=== PATIENT | male | born 1990 | race Caucasian/White ===

== ENCOUNTER 2021-11-27 06:25 | Emergency (ER) | payer OTHER ==
[~2021-11-27 06:25] MED LIST: AMOXICILLIN500 MG PO; ANAPROX DS550 MG PO; CIPRO500 MG PO; KEFLEX500 MG PO; LOMOTIL 0.025 M1 TAB PO; MACROBID100 M1 PO; MOTRIN800 MG PO; PROZAC40 MG PO; ZANTAC 150150 MG PO; ZANTAC150 MG PO; Zofran4 MG PO
[2021-11-27] MEDS ORDERED: PREDNISONE50 MG PO (11:31)
[2021-11-27] MEDS ORDERED: CYCLOBENZAPRINE10 MG PO (11:31)
[2021-11-27] MEDS ORDERED: MIRALAX POWDER17 G1 PO (15:31)
== END 2021-11-27 11:43 | disposition home or self-care (01) ==
LOC: ED 06:25
DX: M54.42 Lumbago with sciatica, left side (principal); Z90.89 Acquired absence of other organs

== ENCOUNTER 2021-11-27 13:02 | Emergency (ER) | payer OTHER ==
[~2021-11-27] VITALS: Ht 157.4 cm; Wt 79.4 kg
[~2021-11-27 13:02] MED LIST changes: +CYCLOBENZAPRINE10 MG PO; +PREDNISONE50 MG PO
[2021-11-27] MEDS ORDERED: MIRALAX POWDER17 G1 PO (15:31)
== END 2021-11-27 16:13 | disposition home or self-care (01) ==
LOC: ED 13:02
DX: M54.32 Sciatica, left side (principal)

== ENCOUNTER 2022-02-08 12:07 | Emergency (ER) | payer OTHER ==
[~2022-02-08] VITALS: Ht 157.4 cm; Wt 79.4 kg
[~2022-02-08 12:07] MED LIST changes: +MIRALAX POWDER17 G1 PO
[2022-02-08 13:10] LABS: BASO % 0.4 % (0.0-1.0); EOS # 0.2 10*3/uL (0.0-0.4); EOS % 1.9 % (1.0-4.0); HEMATOCRIT 46.3 % (42.0-52.0); LYMPH # 2.2 10*3/uL (1.3-4.4); LYMPH % 21.8 % (27.0-41.0); MEAN CELL VOLUME 98.7 fl (80.0-94.0); MEAN CORPUSCULAR HGB 33.7 pg (27.0-31.0); MEAN CORPUSCULAR HGB CONC 34.1 g/dl (33.0-37.0); MEAN PLATELET VOLUME 9.3 fl (9.6-12.3); MONO # 0.6 10*3/uL (0.1-1.0); MONO % 5.7 % (3.0-9.0); NEUT # 7.1 10*3/uL (2.3-7.9); PLATELET COUNT AUTOMATED 299 10*3/uL (130-400); RED BLOOD COUNT 4.69 10*6/uL (4.50-5.90); RED CELL DISTRI WIDTH 12.9 % (0-14.5); WHITE BLOOD COUNT 10.1 10*3/uL (4.8-10.8)
[2022-02-08 13:29] LABS: ALKALINE PHOSPHATASE 65 U/L (46-116); BUN 12 mg/dl (9-23); CHLORIDE 106 mmol/L (98-107); CREATININE 0.82 mg/dL (0.70-1.30); POTASSIUM 4.2 mmol/L (3.4-5.1); SGPT/ALT 18 U/L (10-49); SODIUM 139 mmol/L (136-145); TOTAL PROTEIN 6.8 gm/dL (6.0-8.0)
[2022-02-08] MEDS ORDERED: ZANAFLEX4 MG PO (14:24)
== END 2022-02-08 14:36 | disposition home or self-care (01) ==
LOC: ED 12:07
PROVIDERS: Nurse Practitioner Family
DX: M62.831 Muscle spasm of calf (principal); Z90.89 Acquired absence of other organs

== ENCOUNTER 2024-12-17 12:09 | Emergency (ER) | payer OTHER ==
[~2024-12-17] VITALS: Ht 157.4 cm; Wt 65.8 kg
[~2024-12-17 12:09] MED LIST changes: +ZANAFLEX4 MG PO
[2024-12-17 13:38] LABS: BASO # 0.0 10*3/uL (0.0-0.1); BASO % 0.6 % (0.0-1.0); EOS # 0.2 10*3/uL (0.0-0.4); EOS % 3.0 % (1.0-4.0); MEAN CELL VOLUME 98.6 fl (80.0-94.0); MEAN CORPUSCULAR HGB 33.8 pg (27.0-31.0); MEAN PLATELET VOLUME 8.7 fl (9.6-12.3); MONO # 0.5 10*3/uL (0.1-1.0); MONO % 7.6 % (3.0-9.0); NEUT # 3.8 10*3/uL (2.3-7.9); NEUT % 59.4 % (47.0-73.0); NUCLEATED RED BLOOD CELL 0.0 % (0.0-0.0); NUCLEATED RED BLOOD CELL 0.0 10*3/uL (0.0-0.0); PLATELET COUNT AUTOMATED 285 10*3/uL (130-400); RED CELL DISTRI WIDTH 12.2 % (0-14.5)
[2024-12-17 14:11] LABS: BUN 14 mg/dl (9-23)
[2024-12-17] MEDS ORDERED: NAPROSYN500 MG PO (14:24)
== END 2024-12-17 14:30 | disposition home or self-care (01) ==
LOC: ED 12:09
PROVIDERS: Nurse Practitioner Family
DX: R22.31 Localized swelling, mass and lump, right upper limb (principal); R22.32 Localized swelling, mass and lump, left upper limb; M79.641 Pain in right hand; M79.642 Pain in left hand